=== PATIENT | female | born 1945 | race Caucasian/White ===

== ENCOUNTER 2019-07-18 21:30 | Inpatient (IN) | payer MEDICARE, BC ==
[~2019-07-18] VITALS: Ht 165.1 cm; Wt 77.6 kg
--- NOTE | 2019-07-18 21:37 | NUR ---
Patient brought in by [facility] for s/p fall while in the shower between [id number]. States her son assisted her out of the shower and applied a brace to her lower back. Patient is alert and oriented x 4. c/o of lower back pain. Denies hitting her head. No acute distress. Awaiting MD altamirano.
[2019-07-18] MEDS ORDERED: ONDANSETRON 4 MG/2 ML VIAL IV ONE (22:00)
[2019-07-18] MEDS ORDERED: MORPHINE SULFATE 2 MG/1 ML DISP.SYRIN IV ONE (22:00)
[2019-07-18] MEDS ORDERED: ONDANSETRON 4 MG/2 ML VIAL ONE (22:04)
[2019-07-18] MEDS ORDERED: MORPHINE SULFATE 2 MG/1 ML DISP.SYRIN ONE (22:05)
--- NOTE | 2019-07-18 22:32 | NUR ---
Patient reports pain decreasing and is starting to feel better. Patient in no acute distress. Will cont' to monitor.
[2019-07-18] MEDS ORDERED: MORPHINE SULFATE 4 MG/1 ML DISP.SYRIN ONE (23:45)
[2019-07-18] MEDS ORDERED: MORPHINE SULFATE 4 MG/1 ML DISP.SYRIN IV ONE (23:45)
--- NOTE | 2019-07-18 23:54 | NUR ---
Emerson mckinney in [facility] - 07/18/19 at 2355 by JN Pt take for CT.
[2019-07-19 00:27] LABS: BASOPHILS % (AUTO) 0.4 % (0.0-2.0); EOSINOPHILS % (AUTO) 0.2 % (0.0-7.0); HEMATOCRIT 36.3 % (31.2-41.9); HEMOGLOBIN 12.3 g/dL (10.9-14.3); LYMPHOCYTES # (AUTO) 1.7 K/uL (20.0-40.0); LYMPHOCYTES % (AUTO) 17.3 % (20.5-51.5); MEAN CORPUSCULAR HEMOGLOBIN 30.3 uug (24.7-32.8); MEAN CORPUSCULAR HGB CONC 34 g/dL (32.3-35.6); MEAN CORPUSCULAR VOLUME 89.8 fL (75.5-95.3); MONOCYTES # (AUTO) 0.4 K/uL (2.0-10.0); NEUTROPHILS # (AUTO) 7.8 K/uL (1.8-8.9); NEUTROPHILS % (AUTO) 78.1 % (38.5-71.5); PLATELET COUNT (AUTO) 217 K/uL (179-408); RED BLOOD CELL COUNT(AUTO) 4.05 MIL/uL (3.63-4.92)
--- NOTE | 2019-07-19 00:33 | NUR ---
Patient in [facility], resting comfortable, reports pain to be at a tolerable level.
--- NOTE | 2019-07-19 00:37 | NUR ---
Pt take to CT
[2019-07-19 00:56] LABS: BILIRUBIN,DIRECT 0.1 mg/dL (0.0-0.2); BILIRUBIN,TOTAL 0.6 mg/dL (0.2-1.0); CREATININE 0.9 mg/dL (0.6-1.3); POTASSIUM 3.8 mmol/L (3.5-5.1); TOTAL PROTEIN, SERUM 6.6 g/dL (6.4-8.2)
--- NOTE | 2019-07-19 01:28 | NUR ---
Patient asleep in [facility]. No acute distress.
--- NOTE | 2019-07-19 02:18 | NUR ---
spoke with Larissa at [employer], stated she will page the on-call doctor.
--- NOTE | 2019-07-19 02:29 | NUR ---
ERMD on the phone with [facility] (Edgardo Ibarra) Dx: Intractable pain Waiting for call back for Med/Surg
[2019-07-19] MEDS ORDERED: ACETAMINOPHEN 325 MG TABLET PO PRN (02:45)
[2019-07-19] MEDS ORDERED: MORPHINE SULFATE 2 MG/1 ML DISP.SYRIN IV PRN (02:45)
[2019-07-19] MEDS ORDERED: ONDANSETRON 4 MG/2 ML VIAL IV PRN (02:45)
[2019-07-19] MEDS ORDERED: MAGNESIUM HYDROXIDE 30 ML LIQUID UDC PO PRN (02:45)
--- NOTE | 2019-07-19 03:00 | NUR ---
Hand off and SBAR given to Carrillo RN Pt ok to admit to M/S room 304 Under Nasima Ibarra Dx: intractable pain Belongings list signed and accounted for
--- NOTE | 2019-07-19 03:03 | NUR ---
SBAR report given to Noemy ZHANG in [facility].
--- NOTE | 2019-07-19 04:00 | NUR ---
PATIENT IS A 74 YEAR OLD FEMALE ADMITTED TO MED/SURG FROM EMERGENCY DEPARTMENT. PATIENT STABLE DURING ADMISSION. IV ON THE RIGHT A/C 20G FLUSHING, PATENT, AND INTACT. PATIENT IS ON ROOM AIR. AO X 4. COMPLAINS OF SEVERE PAIN IN BACK. WILL MEDICATE APPROPRIATELY. ADMISSION ORDERS CARRIED OUT. WILL CONTINUE TO MONITOR PATIENT ACCORDINGLY.
[2019-07-19] MEDS ORDERED: MORPHINE SULFATE 2 MG/1 ML DISP.SYRIN ONE (04:29)
--- NOTE | 2019-07-19 04:29 | NUR ---
MEDICATION ON eMar (MORPHINE) IS AN OVERRIDE.
[2019-07-19 05:03] VITALS: BP 128/65
[2019-07-19] MEDS: PANTOPRAZOLE SODIUM 40 MG TABLET.DR PO SCH (06:57)
[2019-07-19] MEDS: HYDROCODONE/APAP 5-325MG TABLET PO PRN ×2 (07:19→21:09)
--- NOTE | 2019-07-19 07:37 | NUR ---
AWAKE ALERT IN BED SOMEWHAT UNCOOPERATIVE DOES NOT WANT ANYONE IN HER ROOM STATED WANTS TO SLEEP ASSISTED NEEDED CALL LIGHTS AND PERSONAL BELONGINGS ARE WITHIN EASY REACH WILL CONTINUE TO OBSERVE AND PROVIDE SAFE AND THERAPEUTIC ENVIRONMENT AT ALL TIMES.
[2019-07-19] MEDS: CARISOPRODOL 350 MG TABLET PO SCH ×3 (09:04→16:07)
[2019-07-19] MEDS: MEMANTINE HCL 10 MG TABLET PO SCH (09:04)
[2019-07-19] MEDS: LISINOPRIL 20 MG TABLET PO SCH (09:04)
[2019-07-19] MEDS: AMLODIPINE 5 MG TABLET PO SCH (09:05)
--- NOTE | 2019-07-19 09:43 | NUR ---
PATIENT FINALLY WOKE UP ATE HER BREAKFAST IN [employer] NEW ORDERS NOTED FROM DR CAMPBELL FOR URINALYSIS AND CULTURE PATIENT AWARE WILL COLLECT SHERINE.
--- NOTE | 2019-07-19 10:15 | NUR ---
PATIENTS DAUGHTER HERE IN ROOM AND WANTED TO SEE THE DOCTOR RE PLAN OF CARE CALLED AND SPOKE WITH DR CAMPBELL AND HE STATED TO ORDER PT/OT EVAL AND HE WILL BE HERE TO SEE THE PATIENT AND WILL DECIDE NEXT PLAN OF CARE PATIENT ALSO AWARE THAT THE DOCTOR ORDERED UA/C/S BUT THE PATIENT STATED THAT SHE DOES NOT THINK THAT IT WAS NECESSARY FOR URINE CHECK.
[2019-07-19 11:31] VITALS: BP 97/51
--- NOTE | 2019-07-19 13:30 | NUR ---
PATIENT SEEN BY THE PHYSICAL THERAPY FOR AMBULATION WITH THE FRONT WHEEL WALKER REQUIRES MAX ASSIST AWARE
--- NOTE | 2019-07-19 14:06 | NUR ---
PATIENT SEEN AND EXAMINED BY DR CAMPBELL WITH NO NEW ORDERS AT THIS TIMEPER DR CAMPBELL PATIENT WILL NOT BE DISCHARGED TODAY DAUGHTER IS HERE AT THE BEDSIDE
[2019-07-19 16:14] VITALS: BP 114/57
[2019-07-19 16:36] LABS: *BILIRUBIN,URIN NEGATIVE (NEGATIVE); *BLOOD, URINE NEGATIVE (NEGATIVE); *CLARITY,URINE CLEAR (CLEAR); *COLOR,URINE YELLOW (YELLOW); *KETONES,URINE NEGATIVE (NEGATIVE); *UROBILINOGEN,URINE 0.2 E.U./dl (NORMAL); LEUKOCYTE ESTERASE ,URINE TRACE (NEGATIVE); NITRITE, URINE NEGATIVE (NEGATIVE); PH,URINE 6.5 (5.0-8.0); UGLUCOSE NEGATIVE (NEGATIVE)
[2019-07-19 16:45] LABS: BACTERIA,URINE FEW /HPF (NONE SEEN); MUCUS,URINE MODERATE /LPF (0-FEW); SQUAMOUS EPITHELIAL CELL,UR FEW /HPF (NONE SEEN); URINE AMORPHOUS URATE FEW /HPF
--- NOTE | 2019-07-19 19:30 | NUR ---
PATIENT ALERT ORIENTED, NO SOB NO CHEST PAIN. PATIENT HAS NO COMPLAIN OF PAIN AT THIS TIME. CONT TO MONITOR.
[2019-07-19 20:41] VITALS: BP 131/61
[2019-07-19] MEDS: SIMVASTATIN 40 MG TABLET PO SCH (21:02)
[2019-07-20] MEDS: PANTOPRAZOLE SODIUM 40 MG TABLET.DR PO SCH (06:02)
--- NOTE | 2019-07-20 06:30 | NUR ---
PATIENT ALERT ORIENTED, NO SOB NO CHEST PAIN, PATIENT HAS NO COMPLAIN OF PAIN AT THIS TIME. PATIENT WAS ASSISTED WITH TOILETING, AND PATIENT SEAT IN CHAIR. CONT TO MONITOR.
--- NOTE | 2019-07-20 06:35 | NUR ---
PATIENT REFUSED LAB WORKS, STATED I'M MIRTHA.
--- NOTE | 2019-07-20 07:25 | NUR ---
RECEIVED PATIENT IN BED AWAKE ALERT AND ORIENTED STATED FEELS MUCH BETTER TODAY C/O FEELS CONSTIPATED BUT STATED WILL WAIT FOR HER BREAKFAST BEFORE TAKING A LAXATIVE.CALL LIGHTS AND PERSONAL BELONGINGS ARE WITHIN EASY REACH MADE COMFORTABLE AND WILL CONTINUE TO OBSERVE.
[2019-07-20] MEDS: NITROFURANTOIN/NITROFURAN MAC 100 MG CAPSULE PO SCH ×2 (08:36→21:21)
[2019-07-20] MEDS: MEMANTINE HCL 10 MG TABLET PO SCH (08:36)
[2019-07-20] MEDS: CARISOPRODOL 350 MG TABLET PO SCH ×3 (08:36→16:39)
[2019-07-20] MEDS: LISINOPRIL 20 MG TABLET PO SCH (08:37)
[2019-07-20] MEDS: MAGNESIUM HYDROXIDE 30 ML LIQUID UDC PO PRN ×2 (08:38→23:57)
[2019-07-20] MEDS: AMLODIPINE 5 MG TABLET PO SCH (08:39)
--- NOTE | 2019-07-20 08:41 | NUR ---
ASSISTED ONTO THE CHAIR AND BREAKFAST SERVED PATIENT IS EATING FEEDING SELF REQUIRED CONTACT GUARD TO GET OOB TO THE CHAIR
--- NOTE | 2019-07-20 09:00 | NUR ---
STATED HAS NOT HAD A BOWEL MOVEMENT FOR A FEW DAYS MEDICATED ORDERED WILL OBSERVE.
[2019-07-20 11:30] VITALS: BP 134/60
--- NOTE | 2019-07-20 15:04 | NUR ---
DISCHARGE PLANNING PATIENT HAS A D/C HOME HEALTH ORDER BUT SHE IS EXPECTING TO GO TO ACUTE REHAB HERE TO CONTINUE PHYSICAL THERAPY BUTADIENE CONVERTER HELPER AWARE WILL TALK TO PATIENT AND HER SON.
[2019-07-20 15:36] VITALS: BP 122/58
--- NOTE | 2019-07-20 16:09 | NUR ---
SPOKE WITH PATIENTS SON KJ OVER THE PHONE STATED WILL BE AVAILABLE TO PICK PATIENT UP [place] WILL FOLLOW HER FOR PHYSICAL THERAPY.[employer] SALES REPRESENTATIVE AWARE
--- NOTE | 2019-07-20 18:28 | NUR ---
PATIENT WANTED TO KNOW WHICH PAIN MEDICATIONS THE DOCTOR ORDERED FOR HER WHEN I CHECKED I TOLD HER THAT SHE DID NOT HAVE ANY PAIN MEDICATIONS ORDERED SO SHE STETED THAT SHE WILL NOT GO HOME WITHOUT THE PAIN MEDICATION PRESCRIPTION SO I CALLED [facility] SPOKE WITH HIM STATED THAT WHEN HE SAW THE PATIENT SHE WAS COMFORTABLE THAT IS WHY HE DID HOT ORDER THE PAIN MEDICATIONS STATED TO GO AHEAD AND CANCEL THE DISCHARGE AND HE WILL SEE THE PATIENT IN AM AND WILL THEN GIVE HER THE PRESCRIPTION. PATIENT AWARE AND HE CALLED HER SON KJ AND HE STATED THAT HE WILL PICK PATIENT UP TOMORROW MOST LIKELY IN THE EVENING BECAUSE OF HIS WORK ENDORSED.
--- NOTE | 2019-07-20 19:00 | NUR ---
PATIENT ALERT ORIENTED, NO SOB NO CHEST PAIN. PATIENT ON PO ANTIBIOTIC, ENCOURAGED TO DRINK WATER. PATIENT HAS NO COMPLAIN OF PAIN AT THIS TIME. CONT TO MONITOR.
[2019-07-20 20:06] VITALS: BP 122/61
[2019-07-20] MEDS: SIMVASTATIN 40 MG TABLET PO SCH (21:22)
[2019-07-21] MEDS: PANTOPRAZOLE SODIUM 40 MG TABLET.DR PO SCH (06:03)
[2019-07-21 06:11] VITALS: BP 128/74
--- NOTE | 2019-07-21 06:38 | NUR ---
PATIENT ALERT ORIENTED, NO COMPLAIN OF BACK PAIN AT THIS TIME. PATIENT WAS GIVEN MOM PLUS PRUNE JUICE FOR CONSTIPATION, AWAITING FOR RESULTS, ENCOURAGE PATIENT TO DRINK WATER TO HELP WITH CONSTIPATION. ENDORSED TO NEXT SHIFT.
--- NOTE | 2019-07-21 06:50 | NUR ---
NOTIFY TOMMY ZAMORA BRANCH ASSISTANT ABOUT PATIENT CONSTIPATION WITH ORDER OF DULCOLAX SUPPOSITORY.
[2019-07-21] MEDS ORDERED: BISACODYL 10 MG SUPP.RECT RC ONE (07:00)
--- NOTE | 2019-07-21 07:00 | NUR ---
received awake alert and oriented, up to BR but no BM yet, informed of Dulcolax supp to be given if no bm, expalined plan of care- verbalized understanding, assessment done, states going home today in the afternoon, son to pick her up, safety measures maintained, call light within reach
--- NOTE | 2019-07-21 08:00 | NUR ---
states had BM x2 and doesn't need Dulcolax supp, sitting on bedside chair, breakfast served
[2019-07-21] MEDS: CARISOPRODOL 350 MG TABLET PO SCH ×3 (08:18→19:18)
[2019-07-21] MEDS: LISINOPRIL 20 MG TABLET PO SCH (08:18)
[2019-07-21] MEDS: AMLODIPINE 5 MG TABLET PO SCH (08:19)
[2019-07-21] MEDS: MEMANTINE HCL 10 MG TABLET PO SCH (08:19)
[2019-07-21] MEDS: NITROFURANTOIN/NITROFURAN MAC 100 MG CAPSULE PO SCH (08:19)
--- NOTE | 2019-07-21 11:00 | NUR ---
ambulated with PT with walker in the hallway- see PT notes
[2019-07-21 11:09] VITALS: BP 112/58
[2019-07-21 15:05] VITALS: BP 111/50
--- NOTE | 2019-07-21 16:00 | NUR ---
up and about in the room, sitting up in chair at this time, states comfortable, only has mild pain on right leg when walking, didnt require any pain med at this time
--- NOTE | 2019-07-21 19:20 | NUR ---
NO DISTRESS NOTED, WAITING GOR SON TO PICK HER UP. ALL NEEDS ATTENDED AND MET, CALL LIGHT WITHIN REACH, DISCHARGE INSTRUCTIONS GIVEN AND VERBALIZED UNDERSTANDING, SALINE LOCK REMOVED- NO REDNESS /SWELLING NOTED ON SITE- ENDORSED TO NEXT SHIFT RN
== END 2019-07-21 20:35 | disposition home health service (06) | DRG 914 ==
LOC: ER 21:31 → MEDSURG3 07-19 03:38
PROVIDERS: ADMIT Nurse Practitioner Acute Care; ATTEND Internal Medicine
DX: S39.92XA Unspecified injury of lower back, initial encounter (principal); D68.59 Other primary thrombophilia; N39.0 Urinary tract infection, site not specified; S89.91XA Unspecified injury of right lower leg, initial encounter; G89.11 Acute pain due to trauma; M51.16 Intervertebral disc disorders with radiculopathy, lumbar region; M48.061 Spinal stenosis, lumbar region without neurogenic claudication; W18.2XXA Fall in (into) shower or empty bathtub, initial encounter; Y93.E1 Activity, personal bathing and showering; Y92.012 Bathroom of single-family (private) house as the place of occurrence of the external cause; H40.9 Unspecified glaucoma; E78.5 Hyperlipidemia, unspecified; M25.78 Osteophyte, vertebrae; Z74.09 Other reduced mobility; E66.9 Obesity, unspecified; Z68.28 Body mass index [BMI] 28.0-28.9, adult; E83.52 Hypercalcemia; Z87.11 Personal history of peptic ulcer disease; Z86.011 Personal history of benign neoplasm of the brain; M81.0 Age-related osteoporosis without current pathological fracture; I10 Essential (primary) hypertension
CPT/HCPCS: 36415; 70030-TC; 71045; 72100; 72131; 72170; 72192; 85025; 85730; 87086; 93005; A4663; G0378; J2270; J2405